=== PATIENT | female | born 1985 | race Two or more races ===

== ENCOUNTER 2016-07-16 20:23 | Emergency (ER) | payer SELFPAY ==
[~2016-07-16] VITALS: Ht 162.6 cm; Wt 59.0 kg
[2016-07-16 21:28] LABS: Basophils # (auto) 0 uL; Basophils % (auto) 0.3 % (0.0-2.0); Eosinophils # (auto) 0 uL; Eosinophils % (auto) 0.3 % (0.0-7.0); Hematocrit 38.4 % (36.0-46.0); Lymphocytes # (auto) 1.8 uL; Lymphocytes % (auto) 23.2 % (10.0-50.0); Mean Corpuscular Hemoglobin 30.1 pg (28.0-32.0); Mean Corpuscular Hgb Conc. 33.7 g/dL (32.0-36.0); Mean Corpuscular Volume 89.2 fL (80.0-100.0); Mean Platelet Volume 8.9 fL (7.4-10.4); Monocytes # (auto) 0.4 uL; Monocytes % (auto) 5.6 % (0.0-12.0); Neutrophils # (auto) 5.5 uL; Neutrophils % (auto) 70.6 % (37.0-80.0); Platelet Count (auto) 278 10^3/uL (140-450); Red Cell Distribution Width 13.8 % (11.6-16.0); White Blood Cell 7.8 10^3/uL (4.4-10.8)
[2016-07-16 21:59] LABS: BUN/Creatinine Ratio 11.8; Bilirubin, Total 0.6 mg/dL (0.2-1.0); Calcium 8.6 mg/dL (8.5-10.1); Potassium 3.3 mmol/L (3.5-5.1); Total Protein 7.5 g/dL (6.4-8.2)
[2016-07-16 22:18] LABS: Urine Bilirubin Negative (Negative); Urine Color Yellow (Yellow); Urine Glucose Normal (Normal); Urine Ketone Negative (Negative); Urine Mucus FEW (None Seen); Urine Nitrite Negative (Negative); Urine RBC 9 /hpf (0 - 4); Urine Squamous Epithelial Cell MOD /hpf (<5); Urine pH 5.5 (5.0-8.0)
[2016-07-16 22:38] LABS: Urine Blood 1+ /uL (Negative)
[2016-07-17 07:25] VITALS: BP 111/72
[2016-07-17] MEDS ORDERED: POTASSIUM CHL 10% (20 MEQ/15ML) ORAL SOLN PO ONE (08:15)
== END 2016-07-17 08:34 | disposition home or self-care (01) ==
LOC: ER 20:26
DX: J20.9 Acute bronchitis, unspecified (principal); N39.0 Urinary tract infection, site not specified; Z87.891 Personal history of nicotine dependence
CPT/HCPCS: 36415; 71020; 80053; 81001; 84702; 85025

== ENCOUNTER 2016-12-29 09:21 | Emergency (ER) | payer MEDICAID ==
[~2016-12-29] VITALS: Ht 162.6 cm; Wt 57.2 kg
[2016-12-29 09:28] VITALS: BP 117/80
[2016-12-29] MEDS ORDERED: cefTRIAXone SOD 1,000 MG VL IM ONE (10:30)
[2016-12-29] MEDS ORDERED: methylPREDNISolone SOD SUCC 125 MG/2 ML VL IM ONE (10:30)
[2016-12-29] MEDS ORDERED: KETOROLAC TROMETH 60MG/2ML VIAL IM ONE (10:30)
== END 2016-12-29 11:03 | disposition home or self-care (01) ==
LOC: ER 09:21
DX: L03.211 Cellulitis of face (principal); Z87.891 Personal history of nicotine dependence
CPT/HCPCS: 96372; 99284; J0696; J1885; J2930

== ENCOUNTER 2016-12-31 16:53 | Emergency (ER) | payer MEDICAID ==
[~2016-12-31] VITALS: Ht 162.6 cm; Wt 61.2 kg
[2016-12-31 17:09] VITALS: BP 104/71
== END 2016-12-31 22:00 | disposition left against medical advice (07) ==
LOC: ER 16:56
DX: R22.0 Localized swelling, mass and lump, head (principal); Z53.21 Procedure and treatment not carried out due to patient leaving prior to being seen by health care provider

== ENCOUNTER 2017-01-01 11:14 | Emergency (ER) | payer MEDICAID ==
[~2017-01-01] VITALS: Ht 162.6 cm; Wt 59.6 kg
[2017-01-01 11:22] VITALS: BP 108/70
== END 2017-01-01 12:32 | disposition home or self-care (01) ==
LOC: ER 11:14
DX: L08.9 Local infection of the skin and subcutaneous tissue, unspecified (principal); Z48.00 Encounter for change or removal of nonsurgical wound dressing

== ENCOUNTER 2017-09-17 12:52 | Emergency (ER) | payer MEDICAID ==
[~2017-09-17] VITALS: Ht 162.6 cm; Wt 65.8 kg
[2017-09-17 13:00] VITALS: BP 128/81
[2017-09-17] MEDS ORDERED: KETOROLAC TROMETH 30 MG/ML 1ML VIAL IV ONE (14:15)
== END 2017-09-17 15:31 | disposition home or self-care (01) ==
LOC: ER 12:52 → EDBD 12:52 → ER 15:31
DX: S39.012A Strain of muscle, fascia and tendon of lower back, initial encounter (principal); S40.011A Contusion of right shoulder, initial encounter; S09.8XXA Other specified injuries of head, initial encounter; Z87.891 Personal history of nicotine dependence; V09.9XXA Pedestrian injured in unspecified transport accident, initial encounter; Y93.01 Activity, walking, marching and hiking; Y92.488 Other paved roadways as the place of occurrence of the external cause; Y99.8 Other external cause status
CPT/HCPCS: 70450; 72220; 73030; 96374; 99284; J1885

== ENCOUNTER 2017-09-19 05:23 | Emergency (ER) | payer MEDICAID ==
[~2017-09-19] VITALS: Ht 162.6 cm; Wt 54.4 kg
[2017-09-19] MEDS ORDERED: SODIUM CHLORIDE 0.9% 1,000 ML IVB ONE (07:14)
[2017-09-19 07:50] VITALS: BP 113/68
[2017-09-19 07:58] LABS: Basophils # (auto) 0 uL; Basophils % (auto) 0.4 % (0.0-2.0); Eosinophils # (auto) 0.4 uL; Eosinophils % (auto) 5.3 % (0.0-7.0); Hematocrit 35.4 % (36.0-46.0); Hemoglobin 11.9 g/dL (12.2-16.2); Lymphocytes # (auto) 1.2 uL; Lymphocytes % (auto) 15.5 % (10.0-50.0); Mean Corpuscular Hemoglobin 30.2 pg (28.0-32.0); Mean Corpuscular Hgb Conc. 33.7 g/dL (32.0-36.0); Mean Corpuscular Volume 89.6 fL (80.0-100.0); Monocytes # (auto) 0.7 uL; Monocytes % (auto) 9.2 % (0.0-12.0); Neutrophils # (auto) 5.5 uL; Neutrophils % (auto) 69.6 % (37.0-80.0); Platelet Count (auto) 282 10^3/uL (140-450); Red Blood Cells 3.95 10^6/uL (4.0-5.20); Red Cell Distribution Width 12.8 % (11.8-14.3); White Blood Cell 7.9 10^3/uL (4.4-10.8)
[2017-09-19] MEDS ORDERED: KETOROLAC TROMETH 30 MG/ML 1ML VIAL IV ONE (08:00)
== END 2017-09-19 08:30 | disposition home or self-care (01) ==
LOC: EDBD 05:23 → ER 05:29
DX: N20.0 Calculus of kidney (principal); N93.9 Abnormal uterine and vaginal bleeding, unspecified; Z90.710 Acquired absence of both cervix and uterus; Z87.891 Personal history of nicotine dependence
CPT/HCPCS: 36415; 74176; 85025; 96374; 99285; J1885; J7030

== ENCOUNTER 2017-11-29 19:34 | Emergency (ER) | payer MEDICAID ==
[~2017-11-29] VITALS: Ht 162.6 cm; Wt 49.4 kg
[2017-11-29 20:29] LABS: Basophils # (auto) 0 uL; Basophils % (auto) 0.5 % (0.0-2.0); Eosinophils # (auto) 0.1 uL; Eosinophils % (auto) 1.4 % (0.0-7.0); Hematocrit 43.1 % (36.0-46.0); Hemoglobin 14.3 g/dL (12.2-16.2); Lymphocytes # (auto) 1.9 uL; Lymphocytes % (auto) 28.4 % (10.0-50.0); Mean Corpuscular Hemoglobin 29.7 pg (28.0-32.0); Mean Corpuscular Hgb Conc. 33.3 g/dL (32.0-36.0); Mean Corpuscular Volume 89.1 fL (80.0-100.0); Monocytes # (auto) 0.7 uL; Neutrophils # (auto) 4.1 uL; Neutrophils % (auto) 59.7 % (37.0-80.0); Nucleated Red Blood Cells % 0.1 %; Platelet Count (auto) 260 10^3/uL (140-450); Red Blood Cells 4.83 10^6/uL (4.0-5.20); Red Cell Distribution Width 14.4 % (11.8-14.3); White Blood Cell 6.8 10^3/uL (4.4-10.8)
[2017-11-29 20:44] LABS: Alanine Aminotransferase 26 U/L (13-56); Albumin 4.2 g/dL (3.4-5.0); Anion Gap 9 (5-15); Aspartate Aminotransferase 18 U/L (15-37); BUN/Creatinine Ratio 13.4; Blood Urea Nitrogen 11 mg/dL (7-18); Calcium 8.6 mg/dL (8.5-10.1); Carbon Dioxide 24 mmol/L (21-32); Chloride 107 mmol/L (98-107); GFR African American 104 mL/min; GFR Non-African American 86 mL/min; Glucose 66 mg/dL (74-106); Potassium 3.2 mmol/L (3.5-5.1); Sodium 140 mmol/L (136-145)
[2017-11-29 20:49] LABS: Alkaline Phosphatase 74 U/L (45-117); Bilirubin, Total 0.4 mg/dL (0.2-1.0)
[2017-11-29 21:00] VITALS: BP 118/68
== END 2017-11-29 21:03 | disposition home or self-care (01) ==
LOC: ER 19:34
DX: R07.89 Other chest pain (principal); F15.90 Other stimulant use, unspecified, uncomplicated; F12.90 Cannabis use, unspecified, uncomplicated; Z88.8 Allergy status to other drugs, medicaments and biological substances; Z90.710 Acquired absence of both cervix and uterus; Z87.891 Personal history of nicotine dependence; Z59.0 Homelessness
CPT/HCPCS: 36415; 71046; 80053; 84484; 85025; 93005

== ENCOUNTER 2019-03-22 17:16 | Emergency (ER) | payer MEDICAID ==
[~2019-03-22] VITALS: Ht 162.6 cm; Wt 57.2 kg
[2019-03-22 18:44] VITALS: BP 120/70
== END 2019-03-22 18:44 | disposition home or self-care (01) ==
LOC: ER 17:16
DX: T19.2XXA Foreign body in vulva and vagina, initial encounter (principal); Z90.710 Acquired absence of both cervix and uterus; Z88.8 Allergy status to other drugs, medicaments and biological substances; W22.8XXA Striking against or struck by other objects, initial encounter; Y93.89 Activity, other specified; Y92.89 Other specified places as the place of occurrence of the external cause; Y99.8 Other external cause status

== ENCOUNTER 2024-10-12 17:57 | Emergency (ER) | payer MEDICAID ==
[~2024-10-12] VITALS: Ht 162.6 cm; Wt 66.3 kg
[2024-10-12] MEDS ORDERED: diphenhdrAMINE HCL 50 MG/1 ML VL IV ONE (19:45)
[2024-10-12] MEDS: diphenhdrAMINE HCL 50 MG/1 ML VL IM ONE (20:01)
[2024-10-12] MEDS: FAMOTIDINE 20 MG TAB PO ONE (20:02)
[2024-10-12] MEDS ORDERED: METH4PAK PO (20:04)
[2024-10-12] MEDS ORDERED: FAMO20TA10 PO (20:04)
--- NOTE | 2024-10-12 20:05 | ED.PDOC ---
History of Present Illness(SKN HPI Comments PT STATES SHE WAS STUNG BY A BEE JUST BELOW RT EAR TODAY AND HAS REDNESS , THROBBING AND THROAT FEELS PLEGMY NO DISTRESS OBSERVED ABOUT 530 PM. DENIES CP, DID, SOB OR THROAT SWELLING Chief Complaint: Insect Bite Time Seen by MD: 18:22 Primary Care Provider: CECE History of Present Illness: Nurses Notes, Medications, Allergies Allergies: Coded Allergies: Ethanol (Verified Allergy, Mild, RASH, 11/29/17) Guaifenesin (Verified Allergy, Mild, RASH, 11/29/17) Information Source: Patient Mode of Arrival: Ambulatory Past Medical History PAST MEDICAL HISTORY: Depression Surgical History: , Hysterectomy ELEVATOR SUPERVISOR History: No Pertinent ELEVATOR SUPERVISOR History Family History Family History: Family hx of DM Social History Smoker: Non-Smoker, Quit Greater Than 1 Year Alcohol: Occasionally Drugs: Marijuana, Methamphetamine Lives In: Homeless All Other Systems: Reviewed and Negative (SEE HPI) Physical Exam General Appearance: No Apparent Distress, Normal HEENT: Normal ENT Inspection, Pharynx Normal, TMs Normal Neck: Full Range of Motion, Non-Tender Respiratory: Lungs Clear, No Respiratory Distress, Normal Breath Sounds Cardiovascular: No Edema, No JVD, No Murmur, No Gallop, Normal Peripheral Pulses, Regular Rate/Rhythm Breast Exam: Deferred Gastrointestinal: No Organomegaly, Non Tender, No Pulsatile Mass, Normal Bowel Sounds, Soft Genitalia: Deferred Pelvic: Deferred Rectal: Deferred Extremities: Normal capillary refill, Normal range of motion, No pedal edema Musculoskeletal : Apperance: Normal Neurologic: Alert, No Motor Deficits, Normal Affect, Normal Mood, No Sensory Deficits Cerebellar Function: Normal Reflexes: NOT DONE Skin: Dry, Normal Color, Rash (TRACE EDEMA MODERATE AMOUNT WITH ERYTHEMA RIGHT LATERAL ASPECT OF NECK NOTED FOREIGN BODY OR STINGER. NO NOTED EXCORIATIONS LESIONS OR DRAINAGE.), Warm Lymphatic: No Adenopathy Was a procedure done? Was a procedure done?: No Differential Diagnosis (INTG) Differential Diagnosis: Abrasion, Cellulitis, Insect Envenomation, Puncture Wound Differential Diagnosis: Abscess X-Ray, Labs, Meds, VS Vital Signs Date Time Temp Pulse Resp B/P (MAP) Pulse Ox O2 Delivery O2 Flow Rate FiO2 10/12/24 17:59 98.2 84 16 139/85 97 98.2 X-Ray, Labs, Meds, VS Comment PATIENT RESPONSIVE TO MEDICATIONS NOTES IMPROVEMENT REQUESTING DISCHARGE AT THIS TIME. SCRIPT TRIAL OF MEDROL DOSEPAK AND PEPCID. ADVISED TO REST INCREASE P.O. FLUIDS WITH ELECTROLYTES. ADVISED TO CARRIAGE SETTER SOME [id number] BENADRYL FOR EMERGENCIES. ADVISED TO FOLLOW UP WITH HER PCP IN 2-3 DAYS NECESSARY ER RETURN PRECAUTIONS GIVEN PATIENT INDICATES UNDERSTANDING AGREES WITH DISCHARGE PLAN OF CARE. Time of 1ST Reevaluation: 19:45 Reevaluation 1ST: Unchanged Time of 2ND Reevaluation: 20:04 Reevaluation 2ND: Improved Patient Education/Counseling: Diagnosis, Treatment, Prognosis, Need For Follow Up Family Education/Counseling: Diagnosis, Treatment, Prognosis, Need For Follow Up SEPSIS Sepsis Screen Date sepsis recognized/suspect: Oct 12, 2024 Time Sepsis recognized/suspect: 1757 Recent Procedure: No On Antibiotic Therapy: No Respiratory Rate >20: No Heart Rate >90: No Temp<36 C (96.8 F) or >38.3 C: No SBP <90 or MAP <65 mmHG: No New Acute Mental Status Change: No Is the patient on CPAP, BIPAP,: No Vital Signs Date Time Temp Pulse Resp B/P (MAP) Pulse Ox O2 Delivery O2 Flow Rate FiO2 10/12/24 17:59 98.2 84 16 139/85 97 98.2 Departure 1 Departure Time of Disposition: 20:04 Impression: Primary Impression: Bee sting reaction Qualified Codes: T63.441A - Toxic effect of venom of bees, accidental (un intentional), initial encounter Disposition: HOME / SELF CARE / HOMELESS Condition: Stable e-Prescriptions Famotidine (PEPCID TABLET) 20 Mg Tb 1 TAB PO BID for 6 Days, #12 TAB Prov: JOMAR AWAN 10/12/24 Methylprednisolone (Medrol Dosepak) 4 Mg Archie 4 MG PO UD for 6 Days, #21 TAB UAD Prov: JOMAR AWAN 10/12/24 Discharged With: Spouse Critical Care Note Critical Care Time?: No Stability Stability form required: JOMAR Jim Oct 12, 2024 20:05
[2024-10-12 20:20] VITALS: BP 136/92; PULSE 67; RESP 16; TEMP 97.9; O2SAT 100
== END 2024-10-12 20:21 | disposition home or self-care (01) ==
LOC: ER 18:00
DX: T63.441A Toxic effect of venom of bees, accidental (unintentional), initial encounter (principal); Z90.710 Acquired absence of both cervix and uterus; Z59.00 Homelessness unspecified
CPT/HCPCS: 96372; 99284; J1100; J1200